=== PATIENT | male | born 1945 | race Caucasian/White ===

== ENCOUNTER → 2016-04-06 | Outpatient (CLI) | payer MEDICARE, BC ==
[~2016-04-06] MED LIST: AMBIEN5 MG PO; BAYER CHEWABLE81 MG PO; COREG 3.125M3.125 MG PO; FLOMAX 0.4 MG0.4 MG PO; IMODIUM CAP 2 MG2 MG PO; IRON325 M1 PO; LASIX40 MG PO; LIPITOR TAB 2020 MG PO; NITROSTAT0.4 MG SL; PANCREASE PO; PLAVIX 75 MG TA75 MG PO; PROTONIX40 MG PO; PROVENTIL HFA 61 INH INH; SPIRONOLACTONE50 MG PO; SYMBICORT 160-1 INHA INH; SYNTHROID50 MCG PO; THERAGRAN TAB1 EA PO; VOLTAREN EC 5050 MG PO
== END ==
LOC: RAD 12:09
DX: R05 Cough (principal); J44.9 Chronic obstructive pulmonary disease, unspecified; I25.10 Atherosclerotic heart disease of native coronary artery without angina pectoris
CPT/HCPCS: 71020

== ENCOUNTER → 2016-04-08 | Outpatient (CLI) | payer MEDICARE, BC | LOC: MAMO 08:14 | DX: N64.4 Mastodynia (principal) | CPT/HCPCS: G0204 ==

== ENCOUNTER → 2016-04-09 | Outpatient (CLI) | payer MEDICARE, BC | LOC: CARD REHAB 11:00 | DX: I25.10 Atherosclerotic heart disease of native coronary artery without angina pectoris (principal); I48.0 Paroxysmal atrial fibrillation; Z98.890 Other specified postprocedural states ==

== ENCOUNTER → 2020-08-12 | Outpatient (CLI) | payer MEDICARE, BC ==
[~2020-08-12] MED LIST changes: +CREON DR 24,001 EACH PO; +SORIATANE25 MG PO; +SYNTHROID25 MCG PO; -SYNTHROID50 MCG PO
== END ==
LOC: HEART 5 08:00
DX: I25.10 Atherosclerotic heart disease of native coronary artery without angina pectoris (principal); I48.0 Paroxysmal atrial fibrillation; R06.02 Shortness of breath; I08.3 Combined rheumatic disorders of mitral, aortic and tricuspid valves; I08.8 Other rheumatic multiple valve diseases; I27.20 Pulmonary hypertension, unspecified
CPT/HCPCS: 78452; 93306; A9502; J2785

== ENCOUNTER → 2021-04-16 | Outpatient (CLI) | payer MEDICARE, BC | LOC: LAB 11:56 | PROVIDERS: Internal Medicine Nephrology | DX: N18.31 Chronic kidney disease, stage 3a (principal) | CPT/HCPCS: 36415; 80053; 82570; 84156 ==

== ENCOUNTER → 2021-08-12 | Outpatient (CLI) | payer MEDICARE, BC | LOC: KOH-I 12:47 | DX: N18.31 Chronic kidney disease, stage 3a (principal) | CPT/HCPCS: 76775 ==

== ENCOUNTER → 2021-09-04 | Outpatient (CLI) | payer MEDICARE, BC | LOC: LAB 11:11 | PROVIDERS: Internal Medicine Nephrology | DX: N18.31 Chronic kidney disease, stage 3a (principal) | CPT/HCPCS: 36415; 80053; 82570; 83970; 84100; 84156 ==

== ENCOUNTER → 2021-11-02 | Outpatient (CLI) | payer MEDICARE, BC ==
[2021-11-03 12:14] LABS: % FREE PSA 30.3 % (.); PROSTATE SPECIFIC AG, SERUM 7.1 ng/mL (0.0-4.0); PSA, FREE 2.15 ng/mL
== END ==
LOC: LAB 09:34
PROVIDERS: Urology
DX: R97.20 Elevated prostate specific antigen [PSA] (principal)
CPT/HCPCS: 36415; 84153; 84154